=== PATIENT | female | born 1955 | race Caucasian/White ===

== ENCOUNTER 2016-10-30 20:05 | Observation (INO) | payer MEDICAID ==
[~2016-10-30] VITALS: Ht 157.5 cm; Wt 99.7 kg
--- NOTE | ~2016-10-30 | ECH ---
Transthoracic Echocardiography Report (TTE) Demographics Patient Name MIO JOHANSEN Date of Study 10/31/2016 Patient Number [id number] Visit Number [id number] Date of 1955 Room Number 429 Accession Number [id number] Gender Female Age 61 year(s) Referring Mik Ribera MD Civil Draftsman Sneha Holt [facility] Physician Physician Interpreting King Rashaad Conway Information Systems Consultant Physician Supervising Ordering Physician King Rashaad Conway MD/DENISE BORJA Nurse Stress Planer Hand Conclusions Summary Technically fair exam. The estimated left ventricular ejection fraction is 60-65%. Mild left ventricular hypertrophy. Diastolic assessment reveals Grade I diastolic dysfunction. Procedure Type of Study TTE procedure:Echo Complete SF. Procedure Date Date: 10/31/2016 Start: 12:26 PM Technical Quality: Fair due to poor acoustical window. Indications:Chest pain. Appropriate Use Criteria: 9 Height: 62 inches Weight: 219 pounds BSA: 1.99 m Rhythm: Within normal limits HR: 75 bpm BP: 185/94 mmHg M-Mode/2D Measurements LV Diastolic Dimension: 4.08 cm LV Systolic Dimension: 2.27 cm LV Septum Diastolic: 1.23 cm LV PW Diastolic: 1.11 cm AO Root Dimension: 2.37 cm Cardiac Output: 6.82 l/min LA Dimension: 3.59 cm Cardiac Index: 3.43 l/min*m RV Diastolic Dimension: 3.18 cm LA volume index: 17 ml/m LVOT: 2.08 cm LVOT VTI: 26.79 cm RV Base: 2.19 cm LV Stroke volume: 90.98 ml RV Mid: 1.66 cm LV Stroke volume index: 45.72 ml/m RV Length: 5.66 cm TAPSE: 1.67 cm TDI-S': 11 cm/s Doppler Measurements AV Peak Velocity: 1.66 m/s MV Peak E-Wave: 0.57 m/s AV Peak Gradient: 11.02 mmHg MV Peak A-Wave: 1 m/s AV Mean Gradient: 5.65 mmHg MV E/A Ratio: 0.57 LVOT Peak Velocity: 1.3 m/s MV P1/2t: 60.1 msec AV Area (Continuity):2.73 cm MV Deceleration Time: 223.8 msec TR Velocity:2.23 m/s MV Area (PHT): 3.66 cm TR Gradient:19.88 mmHg PV Peak Velocity: 1.01 m/s Estimated RAP:3 mmHg PV Peak Gradient: 4.1 mmHg Estimated RVSP: 23 mmHg Estimated PASP: 22.88 mmHg E' Septal Velocity: 0.09 m/s E' Lateral Velocity: 0.09 m/s RA Area: 12.02 cm Findings Left Ventricle The left ventricle is normal in size . Mild left ventricular hypertrophy. Diastolic assessment reveals Grade I diastolic dysfunction. Right Ventricle Normal right ventricle structure and function. Left Atrium Normal left atrial size. Right Atrium Normal right atrial size. Mitral Valve Normal mitral valve structure and function. Aortic Valve Normal aortic valve structure and function. Tricuspid Valve Normal appearing tricuspid valve. Trivial tricuspid regurgitation by color Doppler. Pulmonic Valve The pulmonic valve is not well visualized. Pericardial Effusion No evidence of pericardial effusion. Miscellaneous Visualized portions of the aortic root and ascending aorta appear normal in size. Pleural Effusion No evidence of pleural effusion. Signature
--- NOTE | 2016-10-31 02:42 | ER ---
ADMIT: 10/30/2016 RM/LOC: 429 [facility] MR#: [id number] [address] [address] [address] [place] [address] Emergency Room Report SEX: F AGE: 61 : 1955 DATE: 10/30/2016 TIME: 2005 hours. Please refer to my T-sheet for complete H and P. HISTORY OF PRESENT ILLNESS: Briefly, the patient is a 61-year-old who comes in with chest pain substernal up to her jaw, started at 10:00 a.m. It has been constant all day. She feels very short of breath. She has a history of CVA, hypertension, high cholesterol. PHYSICAL EXAMINATION: VITAL SIGNS: Vital signs here; blood pressure 177/96, pulse 105, respirations 16, temp 98, sat 100%. GENERAL: Anxious. HEENT: Grossly normal. LUNGS: Clear. HEART: Tachy. ABDOMEN: Soft. SKIN: No rash. NEUROLOGIC: Alert and oriented. Nonfocal. EMERGENCY DEPARTMENT COURSE: EKG is sinus rhythm, rate 104, no changes. CBC was normal. Chemistries normal except potassium 3.2, LDH 275. Cardiac enzymes were all negative. We did the whole cardiac routine. Her chest x-ray revealed no acute disease. She was pain-free. Enzymes negative. Given aspirin and ready for admission. I talked to Dr. Tanner. ASSESSMENT: Acute chest pain, atypical in nature, with multiple risk factors. PLAN: Admit to the hospital. Ramakrishna Sorto MD/ aby JOB #: [id number] CC: Jacob Houser MD, Attending Physician Jacob Houser MD, Family Physician
[2016-11-02] MEDS ORDERED: ZESTRIL DPS40 MG PO (12:20)
[2016-11-02] MEDS ORDERED: NORVASC5 MG PO (12:20)
[2016-11-02] MEDS ORDERED: KLOR-CON M2020 ME1 PO (12:20)
[2016-11-02] MEDS ORDERED: PRAVACHOL40 MG PO (12:20)
[2016-11-02] MEDS ORDERED: HYDROCHLOROTHIA25 MG PO (12:20)
[2016-11-02] MEDS ORDERED: ASA CHILDREN'S81 MG PO (12:21)
[2016-11-02] MEDS ORDERED: CLARITIN DPS10 MG PO (12:21)
[2016-11-02] MEDS ORDERED: PROVENTIL HFA6.7 GM IH (12:21)
--- NOTE | 2016-11-10 08:47 | HP ---
ADMIT: 10/30/2016 RM/LOC: 429 [facility] MR#: [id number] [id number] [place], [place] [address] [address] [place] [address] History and Physical SEX: F AGE: 61 : 1955 DATE OF SERVICE: CHIEF COMPLAINT: Chest pain. HISTORY OF PRESENT ILLNESS: This is a 61-year-old female with past medical history significant for hypertension, hyperlipidemia, anxiety, and CVA, admitted for chest pain rule out. The patient states that this morning around 10:00 a.m. she developed mid chest pressure that radiated to her neck. She denies any associated shortness of breath, diaphoresis, or worsening with exertion. The pain was described as being a feeling of pressure and was constant, but seemed to improve when she came to the Emergency Department late this afternoon and was given morphine, Maalox, nitroglycerin, and Ativan. She is unsure of combination of much of those helped her feel better. She has never had chest pain like this before, but does have a history of CVA many years ago. She states that she is compliant with her medications. In the ER, her vital signs were stable. Her initial enzymes and EKG were normal. She is currently chest pain free. She does deny any history of acid reflux. PAST MEDICAL HISTORY: 1. Hypertension. 2. Hyperlipidemia. 3. Cerebrovascular accident. 4. Anxiety. PAST SURGICAL HISTORY: None. MEDICATIONS: 1. Lisinopril 40 mg daily. 2. Hydrochlorothiazide 25 mg daily. 3. Potassium chloride 20 mEq daily. 4. Pravastatin 40 mg daily. 5. Amlodipine 5 mg daily. 6. Aspirin 81 mg daily. 7. Loratadine 10 mg daily. 8. Proventil p.r.n. q.4 hours. ALLERGIES: NONE. SOCIAL HISTORY: She denies any tobacco, alcohol, or illegal drug use. FAMILY HISTORY: Significant for coronary artery disease, stroke, diabetes, hypertension, and cancer. REVIEW OF SYSTEMS: A 10-point review of systems was reviewed and negative other than that stated above in the HPI. PHYSICAL EXAMINATION: VITAL SIGNS: Blood pressure 149/77, pulse 74, respirations 16, temp 97.4, and saturating 97% on room air. GENERAL: She is sleepy, but arousable. No acute distress. She is currently ADMIT: 10/30/2016 RM/LOC: 429 [facility] MR#: [id number] [address] [facility] [address] [place] [id number] MIO JOH[address]EN [address] [place] [address] History and Physical SEX: F AGE: 61 : 1955 chest pain free. HEART: Regular rate and rhythm. No murmur. LUNGS: Clear. ABDOMEN: Soft, nontender, nondistended with positive bowel sounds. EXTREMITIES: No edema. LABORATORY DATA: Sodium 145, potassium 3.2, creatinine 0.7, LDH 275, mag 2.1, CK 139, MB 0.7, troponin negative. Chest x-ray is negative. EKG showed normal sinus rhythm. ASSESSMENT AND PLAN: 1. Atypical chest pain. We will plan to trend her enzymes and repeat her EKG, also check a hemoglobin A1c and a lipid panel in the morning. We may need to consider an outpatient stress test given her history. 2. Hypokalemia. We will go ahead and replace this orally tonight and recheck a BMP in the morning. 3. Hypertension. 4. Hyperlipidemia. 5. History of cerebrovascular accident. 6. Anxiety. 7. Obesity. Aletha Welch DO Resident / Jacob Houser MD / aby JOB #: [id number] CC: Jacob Houser, Attending Physician Jacob Houser, Family Physician
--- NOTE | 2016-11-17 15:33 | CO ---
ADMIT: 10/30/2016 RM/LOC: 429 [facility] MR#: [id number] [address] [address] [address] [place] [address] Consultation SEX: F AGE: 61 : 1955 DATE OF CONSULTATION: 10/31/2016 ATTENDING PHYSICIAN: Jacob Houser CONSULTING PHYSICIAN: Rashaad Drake MD REASON FOR CONSULT: Chest pain. HISTORY OF PRESENT ILLNESS: The patient presented to the ER with a chief complaint of substernal chest tightness that began at 10 a.m. on 10/30/2016. She reported the chest pain as constant, rated it a 10/10 in severity and said that it radiated to her jaw. Associated symptoms included shortness of breath, diaphoresis, and dizziness. She said that this chest pain lasted about 1 hour and has not represented since this time. The patient also reports that at that time she was doing some chores around the house consisting of light activity. She also reports that she has felt extra stress at that time due to moving (change in home). The patient's EKG here in the ER reveals sinus rhythm, rate of 104, no acute changes. The patient's cardiovascular risk factors reveal that she has high blood pressure, high cholesterol, and some family history of heart disease in her mother. She is not a diabetic. She does not have past history of smoking. Upon questioning, the patient reports that she has had episodes of chest tightness over the past couple months. She reports that these occur an estimated 3 times a month and lasts up to 1 hour (but usually less). The severity has not been near the 10/10 severity of the most recent episode. She reports that she gets this chest pain when she is being active or she feels overly stressed. These chest pain episodes always go away on their own when she sits down and rest. PAST MEDICAL HISTORY: SIGNIFICANT ILLNESSES: 1. Hypertension. 2. Hyperlipidemia. 3. History of stroke. 4. Edema. PREVIOUS SURGERIES: Ankle surgery. HOME MEDICATIONS: 1. Lisinopril 40 mg p.o., daily. 2. Hydrochlorothiazide 25 mg p.o., daily. 3. Potassium chloride 20 mEq p.o., daily. 4. Pravastatin 40 mg p.o., daily at night. 5. Amlodipine 5 mg p.o., daily. 6. Aspirin 81 mg p.o., daily. 7. Loratadine 10 mg p.o., daily. 8. Proventil HFA inhaler 6.7 g p.r.n., every 4 hours. ADMIT: 10/30/2016 RM/LOC: 429 [facility] MR#: [id number] [address] [address] [address] [place] [address] Consultation SEX: F AGE: 61 : 1955 ALLERGIES: NO KNOWN MEDICAL ALLERGIES. FAMILY HISTORY: The patient has a positive family history for heart disease in her mother. She is unsure of what type of heart disease, but does know that she had a pacer. The patient does have a positive family history for diabetes type 2 in her mother. Positive family history of cancer in her brother, unknown type. Positive family history of stroke in her mother. SOCIAL HISTORY: The patient reports that she does follow a special diet as she tries to eat healthy. She does report seldom caffeine use and pop. She denies history of alcohol use or drug use. OCCUPATION: Unemployed. MARITAL STATUS: Single. REVIEW OF SYSTEMS: GENERAL: Negative for fatigue, recent fever, chills, sweats, recent weight loss or weight gain. EYES: Negative for blurry vision or total or partial loss of vision, glaucoma, cataracts. THROAT, MOUTH, AND EARS: Negative for problems with nose, sinus, throat, hearing, ears. RESPIRATORY: Negative for asthma, emphysema, bronchitis, chronic cough, bloody sputum. Positive for obstructive sleep apnea symptoms as she snores loudly and reports that she wakes up short of breath often. GASTROINTESTINAL: Negative for heartburn, reflux, difficulty swallowing, hiatal hernia, stomach ulcer, rectal bleeding, or bloody stools, gallbladder problems, liver disease. GENITOURINARY: Negative for blood in urine, dysuria, UTI, kidney stones, kidney failure. MUSCULOSKELETAL: Negative for arthritis, gout, muscle or joint pains. ENDOCRINE: Negative for thyroid problems. HEMATOLOGIC/LYMPHATIC: Negative for anemia, bleeding problems, or cancer. NEUROLOGIC: Positive for history of stroke as well as numbness and tingling that goes down her arms and into her hands unrelated with the chest pain. Negative history for chronic headaches or seizure disorder. PSYCHIATRIC: Negative for mental illness, depression, or anxiety disorder, though she reports she does feel anxious at times. PHYSICAL EXAMINATION: VITAL SIGNS: Temperature afebrile, pulse 85, respiratory rate 18, blood pressure 185/96, and O2 sat 94% on room air. GENERAL: Alert and oriented x3. No acute distress. NECK: Absent JVD. HEART: Regular rate and rhythm. No murmurs, clicks, rubs, or gallops. LUNGS: Clear to auscultation. ABDOMEN: Soft and nontender. Positive bowel sounds. EXTREMITIES: Trace lower extremity edema. ADMIT: 10/30/2016 RM/LOC: 429 [facility] MR#: [id number] [address] [place] [id number] MIO JOHANSEN [address] [place] [address] Consultation SEX: F AGE: 61 : 1955 LABORATORY DATA: Sodium 141, potassium 3.3, chloride 106, CO2 of 30, BUN 12, creatinine 0.6, and glucose 110. White blood cell count 6.7, hemoglobin 11.7. LDL 90, HDL 47, TSH 1.4, CK-MB 1.1, troponin less than 0.015. EKG normal sinus rhythm. Chest x-ray, negative study. ASSESSMENT: 1. Chest pain. 2. Hypertension. PLAN: Enzymes and EKG are normal. We will check echo. If echo is normal, plan discharge with outpatient stress test. If abnormal echo, may need a heart cath. We will admit for increased blood pressure. We will try Coreg. Evaluate this night for possible discharge. TERESA Gomez Student / Rashaad Drake MD / aby JOB #: [id number] CC: Jacob Houser, Attending Physician Jacob Houser, Family Physician
== END 2016-10-31 17:15 | disposition home or self-care (01) ==
LOC: ER 20:05 → 4PCU 22:10
PROVIDERS: ADMIT Family Medicine
DX: R07.89 Other chest pain (principal); E87.6 Hypokalemia; I10 Essential (primary) hypertension; E78.5 Hyperlipidemia, unspecified; F41.9 Anxiety disorder, unspecified; I51.7 Cardiomegaly; Z86.73 Personal history of transient ischemic attack (TIA), and cerebral infarction without residual deficits; Z79.82 Long term (current) use of aspirin; Z79.899 Other long term (current) drug therapy; Z82.49 Family history of ischemic heart disease and other diseases of the circulatory system; Z98.890 Other specified postprocedural states